=== PATIENT | male | born 1980 | race African-American/Black ===

== ENCOUNTER 2021-11-15 03:37 | Emergency (ER) | payer BC | END 2021-11-15 05:56 | disposition home or self-care (01) | LOC: CSHERS 03:37 | DX: M53.3 Sacrococcygeal disorders, not elsewhere classified (principal); I10 Essential (primary) hypertension; J45.909 Unspecified asthma, uncomplicated; F17.210 Nicotine dependence, cigarettes, uncomplicated; Z79.899 Other long term (current) drug therapy | CPT/HCPCS: 72170 ==

== ENCOUNTER 2021-11-20 02:57 | Emergency (ER) | payer BC, SELFPAY ==
[2021-11-20] MEDS ORDERED: Ketorolac Tromethamine 30 MG/ML VIAL ONE (03:48)
[2021-11-20] MEDS ORDERED: Dexamethasone 10 MG/ML VIAL ONE (03:48)
== END 2021-11-20 04:36 | disposition home or self-care (01) ==
LOC: CSHERS 02:57
DX: M54.42 Lumbago with sciatica, left side (principal); I10 Essential (primary) hypertension; J45.909 Unspecified asthma, uncomplicated; F17.210 Nicotine dependence, cigarettes, uncomplicated; Z79.899 Other long term (current) drug therapy; Z79.51 Long term (current) use of inhaled steroids
CPT/HCPCS: 96372; 99283; J1100; J1885